=== PATIENT | female | born 1945 | race Two or more races ===

== ENCOUNTER → 2016-07-04 | Outpatient (CLI) | payer MEDICARE ==
--- NOTE | 2016-07-04 13:35 | US ---
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 SIDE PERFORMED: Left TECHNIQUE: The lower extremity deep venous system is examined utilizing real time linear array sonog jessy with graded compression, Doppler sonography and color-flow sonography. VESSELS IMAGED: Common Femoral Vein Deep Femoral Vein Greater Saphenous Vein * Femoral Vein Popliteal Vein Small Saphenous Vein * Proximal Calf Veins (* superficial vessels) Grayscale, color doppler, spectral doppler imaging performed of the deep veins of the lower extremiti es. There is normal flow, compressibility, vascular waveforms bilaterally. Left Leg: Negative for DVT. No mass is seen at patient's area of complaint. Tech findings called to Nina Armando at [facility] at exam's end.JJ Minus few images at level of palpable abnormality left anterior lateral calf show no worrisome solid or cystic mass or fluid collection on images saved. IMPRESSION: No ultrasound evidence for acute DVT in left lower extremity.
== END | disposition home or self-care (01) ==
LOC: RADUSWWP 12:27
PROVIDERS: ATTEND Family Medicine
DX: I69.964 Other paralytic syndrome following unspecified cerebrovascular disease affecting left non-dominant side (principal); M79.605 Pain in left leg

== ENCOUNTER → 2016-07-07 | Outpatient (CLI) | payer MEDICARE ==
[2016-07-07 12:30] LABS: Basophils # (A) 0.1 k/uL (0-0.2); Basophils % (A) 1 %; CH 28.2; CHCM 32.7; Eosinophils # (A) 0.4 k/uL (0-0.7); Eosinophils % (A) 3 %; HCT 40.1 % (34.0-46.0); HDW 3.15; HGB 12.9 gm/dL (11.4-16.0); Luc % (Auto) 2; Lymphocytes # (A) 3.7 k/uL (1.0-4.8); Lymphocytes % (A) 31 %; MCHC 32.2 g/dL (31.0-37.0); MCV 86.7 fL (80.0-100.0); Mean Platelet Volume 6.6; Monocytes # (A) 0.7 k/uL (0-1.0); Monocytes % (A) 6 %; Neutrophils # (A) 6.8 k/uL (1.3-7.7); Neutrophils % (A) 58 %; RBC 4.63 m/uL (3.80-5.40); RDW 13.6 % (11.5-15.5); WBC 11.8 k/uL (3.8-10.6); WBC (Perox) 12.09
[2016-07-07 12:37] LABS: ALT 17 U/L (9-52); AST 17 U/L (14-36); Alkaline Phosphatase 81 U/L (38-126); Anion Gap 10 mmol/L; Blood Urea Nitrogen 18 mg/dL (7-17); Calcium 9.8 mg/dL (8.4-10.2); Carbon Dioxide 27 mmol/L (22-30); Chloride 107 mmol/L (98-107); Cholesterol 223 mg/dL (<200); Glucose 88 mg/dL (74-99); HDL Cholesterol 85 mg/dL (40-60); Non-African American GFR(MDRD) >60 (>60 ml/min/1.73 sqM); Potassium 4.4 mmol/L (3.5-5.1); Sodium 144 mmol/L (137-145); Total Bilirubin 0.6 mg/dL (0.2-1.3); Total Protein 7.4 g/dL (6.3-8.2); Triglycerides 420 mg/dL (<150)
--- NOTE | 2016-07-07 12:45 | XR ---
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 COMPARISON: None. FINDINGS: No fracture or dislocation is seen. There is mild medial joint space loss within the left knee. There is a small plantar calcaneal spur. IMPRESSION: NO ACUTE OSSEOUS LESION.
[2016-07-07 13:42] LABS: Hemoglobin A1C 6.2 % (4.2-6.1)
== END | disposition home or self-care (01) ==
LOC: LABWHC1 11:51
PROVIDERS: ATTEND Physician Assistant Medical
DX: I69.964 Other paralytic syndrome following unspecified cerebrovascular disease affecting left non-dominant side (principal); E78.5 Hyperlipidemia, unspecified; I10 Essential (primary) hypertension
CPT/HCPCS: 36415; 80053; 80061; 83036; 84443; 85025

== ENCOUNTER → 2016-08-01 | Outpatient (CLI) | payer MEDICARE | END | disposition home or self-care (01) | LOC: LABWHC1 14:26 | PROVIDERS: ATTEND Physician Assistant Medical | DX: R94.6 Abnormal results of thyroid function studies (principal) | CPT/HCPCS: 36415; 84439; 84443; 84480; 86376; 86800 ==

== ENCOUNTER → 2017-10-20 | Outpatient (CLI) | payer MEDICARE | END | disposition home or self-care (01) | LOC: LABWHC1 13:21 | PROVIDERS: ATTEND Urology | DX: N39.0 Urinary tract infection, site not specified (principal) | CPT/HCPCS: 87077; 87086; 87186 ==

== ENCOUNTER → 2018-08-18 | Outpatient (CLI) | payer MEDICARE ==
--- NOTE | 2018-08-19 09:50 | MM ---
Reason for exam: screening (asymptomatic). Physical Findings: A clinical breast exam by your physician is recommended on an annual basis and results should be correlated with mammographic findings. MG 3D Screening Mammo W/Cad Bilateral CC, MLO, and XCCL view(s) were taken. No prior studies available for comparison. Finding #1: There is a 12 mm equal density (isodense), irregular mass in the upper quadrant, central position of the left breast. Finding #2: There are typically benign calcifications in both breasts. ASSESSMENT: Incomplete: need additional imaging evaluation, BI-RAD 0 RECOMMENDATION: Special view mammogram of the left breast. If lesion persists on supplemental views, image directed ultrasound is recommended. [facility] will attempt to contact patient to return for supplemental views and ultrasound if indicated.
== END | disposition home or self-care (01) ==
LOC: RADMAMWWP 13:54
PROVIDERS: ATTEND Family Medicine
DX: Z12.31 Encounter for screening mammogram for malignant neoplasm of breast (principal)
CPT/HCPCS: 77063; 77067

== ENCOUNTER → 2018-11-16 | Outpatient (CLI) | payer MEDICARE ==
--- NOTE | 2018-11-16 11:43 | FL ---
EXAMINATION TYPE: FL barium swallow w video DATE OF EXAM: 11/16/2018 MODIFIED SWALLOW / DEGLUTITION STUDY CLINICAL HISTORY: Dysphagia. Choking when eating and drinking. History of significant stroke 8 years ago. TECHNIQUE: Deglutition study is performed utilizing thin liquid barium, barium thick pudding, and ba rium coated cracker. Total of 56 seconds of fluoroscopic time utilized during procedure. 0 spot image s saved to PACS. COMPARISON: Prior esophagram November 21, 2014. FINDINGS: The oral and pharyngeal phases show satisfactory initiation and propagation with all modali ties tested. Satisfactory mastication is seen with solid modalities tested. There is no evidence of penetration or aspiration with any modality tested. No significant pharyngeal residue was appreciate d. IMPRESSION: Normal deglutition study. Please refer to speech therapist notes for further details if necessary.
--- NOTE | 2018-11-16 13:00 | ECHOF ---
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 MEASUREMENTS -------- HEIGHT: 160.0 cm WEIGHT: 68.9 kg BP: 103/68 RVIDd: 2.6 cm (< 3.3) IVSd: 1.0 cm (0.6 - 1.1) LVIDd: 4.2 cm (3.9 - 5.3) LVPWd: 1.1 cm (0.6 - 1.1) IVSs: 1.7 cm LVIDs: 3.1 cm LVPWs: 1.4 cm LA Diam: 3.5 cm (2.7 - 3.8) LAESV Index (A-L): 24.82 ml/m Ao Diam: 2.6 cm (2.0 - 3.7) AV Cusp: 1.8 cm (1.5 - 2.6) MV EXCURSION: 10.412 mm (> 18.000) MV EF SLOPE: 11 mm/s (70 - 150) EPSS: 0.8 cm MV E Júnior: 0.91 m/s MV DecT: 212 ms MV A Júnior: 1.32 m/s MV E/A Ratio: 0.69 RAP: 5.00 mmHg RVSP: 22.70 mmHg FINDINGS -------- Sinus rhythm. This was a technically adequate study. The left ventricular size is normal. There is borderline concentric left ventricular hypertrophy. Overall left ventricular systolic function is normal with, an EF between 60 - 65 %. The right ventricle is normal in size. Normal LA size by volume 22+/-6 ml/m2. The right atrium is normal in size. Interatrial and interventricular septum intact. The aortic valve is trileaflet and appears structurally normal. Trace amount of aortic regurgitatio n. The mitral valve leaflets are mildly thickened. Mild mitral annular calcification present. Mild m itral regurgitation is present. Mild tricuspid regurgitation present. Right ventricular systolic pressure is normal at < 35 mmHg. Trace/mild (physiologic) pulmonic regurgitation. The aortic root size is normal. There is no pericardial effusion. CONCLUSIONS -------- 1. Sinus rhythm. 2. This was a technically adequate study. 3. The left ventricular size is normal. 4. There is borderline concentric left ventricular hypertrophy. 5. Overall left ventricular systolic function is normal with, an EF between 60 - 65 %. 6. The right ventricle is normal in size. 7. Normal LA size by volume 22+/-6 ml/m2. 8. The right atrium is normal in size. 9. Interatrial and interventricular septum intact. 10. The aortic valve is trileaflet and appears structurally normal. 11. Trace amount of aortic regurgitation. 12. The mitral valve leaflets are mildly thickened. 13. Mild mitral annular calcification present. 14. Mild mitral regurgitation is present. 15. Mild tricuspid regurgitation present. 16. Right ventricular systolic pressure is normal at < 35 mmHg. 17. Trace/mild (physiologic) pulmonic regurgitation. 18. The aortic root size is normal. 19. There is no pericardial effusion. INTERPRETIVE PROGRAM COORDINATOR: Ifeoma Gunter RDCS
--- NOTE | 2018-11-16 15:23 | US ---
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 History of stroke EXAM MEASUREMENTS: RIGHT: Peak Systolic Velocity (PSV) cm/sec ----- Right CCA: 72.6 ----- Right ICA: 88.6 ----- Right ECA: 145.1 ICA/CCA ratio: 1.2 RIGHT: End Diastole cm/sec ----- Right CCA: 18.1 ----- Right ICA: 27.0 ----- Right ECA: 17.4 LEFT: Peak Systolic Velocity (PSV) cm/sec ----- Left CCA: 79.3 ----- Left ICA: 89.2 ----- Left ECA: 148.3 ICA/CCA ratio: 1.1 LEFT: End Diastole cm/sec ----- Left CCA: 23.6 ----- Left ICA: 22.0 ----- Left ECA: 15.1 VERTEBRALS (direction of flow): Right Vertebral: Antegrade Left Vertebral: Antegrade Rhythm: Normal Bilateral intimal thickening, elevated velocities: right proximal ECA and left proximal ECA, no signi ficant stenosis. Grayscale, color Doppler, spectral Doppler imaging performed of the carotid arteries. Waveform analys is does not show significant stenosis of the proximal internal carotid arteries. IMPRESSION: No hemodynamic significant stenosis of the proximal internal carotid arteries by Doppler criteria, an indirect measurement of carotid stenosis
== END ==
LOC: RADFLMAIN 10:24
PROVIDERS: ATTEND Family Medicine
DX: I08.1 Rheumatic disorders of both mitral and tricuspid valves (principal); I10 Essential (primary) hypertension; E78.5 Hyperlipidemia, unspecified; I69.391 Dysphagia following cerebral infarction
CPT/HCPCS: 74230; 93005; 93306; 93880

== ENCOUNTER → 2020-01-10 | Outpatient (CLI) | payer MEDICARE | END | disposition home or self-care (01) | LOC: LABWHC1 16:01 | PROVIDERS: ATTEND Family Medicine | DX: Z20.828 Contact with and (suspected) exposure to other viral communicable diseases (principal) | CPT/HCPCS: U0003; C9803 ==

== ENCOUNTER 2020-02-14 04:10 | Emergency (ER) | payer MEDICARE ==
[~2020-02-14 04:10] MED LIST: ATROPINE SULFATE 0.1 MG/ML 10ML SYRINGE ONE; CALCIUM CHLORIDE 100 MG/ML 10 ML SYRINGE ONE; EPINEPHrine 10 ML SYRINGE (0.1 MG/ML) ONE; MAGNESIUM SULFATE SYG 4.06 MEQ/ML SYRINGE ONE; SODIUM BICARB 8.4% 50 ML SYR (1 MEQ/ML) ONE
[2020-02-14 04:30] LABS: HCT 47.8 % (34.0-46.0); HGB 12.8 gm/dL (11.4-16.0); Hypochromasia Marked; MCH 26.5 pg (25.0-35.0); MCHC 26.7 g/dL (31.0-37.0); MCV 99.2 fL (80.0-100.0); Macrocytosis Slight; Mean Platelet Volume 8.2; Platelet Count 175 k/uL (150-450); RBC 4.82 m/uL (3.80-5.40); RDW 14.8 % (11.5-15.5)
[2020-02-14 04:40] LABS: ALT 301 U/L (4-34); AST 610 U/L (14-36); African American GFR (CKD) 52 (>60 ml/min/1.73 sqM); Albumin 2.4 g/dL (3.5-5.0); Alkaline Phosphatase 87 U/L (38-126); Blood Urea Nitrogen 29 mg/dL (7-17); Calcium 8.4 mg/dL (8.4-10.2); Chloride 114 mmol/L (98-107); Glucose 330 mg/dL (74-99); Non-African American GFR(CKD) 45 (>60 ml/min/1.73 sqM); Sodium 142 mmol/L (137-145); Total Bilirubin 0.4 mg/dL (0.2-1.3)
[2020-02-14] MEDS ORDERED: NOREPINEPHRINE 32 MG in SODIUM CHLORIDE 0.9% 218 ML IV ONE (04:40)
[2020-02-14 04:41] LABS: INR 1.2 (<1.2); Prothrombin Time 11.7 sec (9.0-12.0)
[2020-02-14 04:43] LABS: Potassium 5.7 mmol/L (3.5-5.1)
[2020-02-14 04:50] LABS: Carbon Dioxide <5 mmol/L (22-30); Partial Thromboplastin Time 87.2 sec (22.0-30.0)
[2020-02-14] MEDS ORDERED: INSULIN REGULAR 100 UNIT/ML VIAL IV STA (04:56)
--- NOTE | 2020-02-14 04:56 | ED ---
CPR HPI - General Stated Complaint: Cardiac Arrest Time Seen by Provider: 02/14/20 04:10 Source: EMS Mode of arrival: EMS Limitations: altered mental status - History of Present Illness Initial Comments: Patient is a 74-year-old woman brought by ambulance after she collapsed at home. The patient is of course not able to give any history due to being unresponsive and intubated. EMS states that they were called at at approximately 319 and it was reported that the patient had collapsed as a witnessed collapse at home. They arrived to find patient asystole and instituted ACLS protocol including intubation, ACLS meds including epinephrine 9. They did reportedly obtain may tricular fibrillation which was shocked into PEA. Per EMS the patient had not been feeling well and did not want to go to bed and then collapsed in the kitchen. MD Complaint: collapsed during rest Onset/Timin -: minute(s) Place: home AED Applied by Bystander/Polystyrene Molding Machine Tender: Yes Shock Advised: Yes Number of Shocks Delivered: 1 Initial Findings in the Field: unresponsive ROSC in the Field: No Treatments Prior to Arrival: intubation, chest compressions, defibrillated shocks #, epinephrine mgs # (8) Review of Systems ROS Statement: Those systems with pertinent positive or pertinent negative responses have been documented in the HPI. ROS Other: All systems not noted in ROS Statement are negative. Limitations: ROS unobtainable due to patients medical condition (Patient unresponsive and intubated) Past Medical History History of Any Multi-Drug Resistant Organisms: ESBL Date of last positivie culture/infection: 09/23/19 MDRO Source:: ESBL URINE General Exam Limitations: altered mental status General appearance: other (Unresponsive and intubated) Head exam: Present: atraumatic, normocephalic Eye exam: Present: other (Pupils approximately 6 mm and nonreactive. Corneal drying). Absent: PERRL, EOMI ENT exam: Present: other (There is mucosal pallor. An endotracheal tube is secured with a bite block at 27 cm) Neck exam: Present: normal inspection, other (Step-off or deformity) Respiratory exam: Present: rales, rhonchi, other (There is no spontaneous inspiratory effort. While the patient is bagged there are Rales throughout and scattered rhonchi) Cardiovascular Exam: Present: normal rhythm, bradycardia, other (There is a pulse rate approximate mid 40s with palpable femoral pulse). Absent: systolic murmur, diastolic murmur, rubs, gallop GI/Abdominal exam: Present: soft. Absent: tenderness, guarding, rebound Extremities exam: Absent: normal capillary refill (Delayed capillary refill), pedal edema, other (No deformity. Left pretibial contusion) Back exam: Present: normal inspection. Absent: other (No step-off or deformity noted) Neurological exam: Present: motor sensory deficit. Absent: alert, reflexes normal Expanded Neurological exam: Present: total aphasia. Absent: protecting the airway Speech: Present: total aphasia Cranial nerves: Gag Reflex: Abnormal Right, Abnormal Left Eye Response: (1) no response Motor Response: (1) no motor response Verbal Response: (1) no verbal response Skin exam: Present: pallor. Absent: rash Course Vital Signs 02/14/20 05:35 Respiratory 12 Rate Medical Decision Making - Medical Decision Making Patient is 74-year-old woman brought by ambulance after collapsing at home and initially being found in asystole. On arrival patient receiving mechanical CPR, and it appears that EMS has obtained ROSC. Initially bradycardic and therefore additional epinephrine given. I did begin to place a central line for pressors. As I was in the process of starting to place the central line the patient did lose pulses in CPR was recommenced. I therefore was not able place a line in the subclavian or IJ locations. It was not possible to use the ultrasound as patient receiving CPR and too much motion. Line placement uncomplicated. She the procedure note. The patient is then started on fluids and pressors. The chest x-ray then shows bilateral edema versus actually suspected Covid picture. The patient ultimately again did lose pulses and not responsive to further ACLS and is pronounced at 638. Case is discussed with patient's primary physician who will sign the certificate. Case is discussed with the medical affairs director and they will release for disposition. - Lab Data Result diagrams: 02/14/20 04:15 02/14/20 04:15 Lab Results 02/14/20 02/14/20 02/14/20 Range/Units 04:15 04:15 04:15 WBC 13.6 H (3.8-10.6) k/uL RBC 4.82 (3.80-5.40) m/uL Hgb 12.8 (11.4-16.0) gm/dL Hct 47.8 H (34.0-46.0) % MCV 99.2 (80.0-100.0) fL MCH 26.5 (25.0-35.0) pg MCHC 26.7 L (31.0-37.0) g/dL RDW 14.8 (11.5-15.5) % Plt Count 175 (150-450) k/uL MPV 8.2 Neutrophils % (Manual) 64 % Band Neuts % (Manual) 4 % Lymphocytes % (Manual) 27 % Monocytes % (Manual) 2 % Eosinophils % (Manual) 1 % Myelocytes % 2 % Neutrophils # (Manual) 9.20 H (1.3-7.7) k/uL Lymphocytes # (Manual) 3.67 (1.0-4.8) k/uL Monocytes # (Manual) 0.27 (0-1.0) k/uL Eosinophils # (Manual) 0.14 (0-0.7) k/uL Myelocytes # (Manual) 0.27 H (0) k/uL Nucleated RBCs 3 H (0-0) /100 WBC Manual Slide Review Performed Hypochromasia Marked Macrocytosis Slight PT 11.7 (9.0-12.0) sec INR 1.2 H (<1.2) APTT 87.2 H (22.0-30.0) sec D-Dimer (<0.60) mg/L FEU Sodium 142 (137-145) mmol/L Potassium 5.7 H (3.5-5.1) mmol/L Chloride 114 H (98-107) mmol/L Carbon Dioxide <5 L* (22-30) mmol/L Anion Gap mmol/L BUN 29 H (7-17) mg/dL Creatinine 1.19 H (0.52-1.04) mg/dL Est GFR (CKD-EPI)AfAm 52 (>60 ml/min/1.73 sqM) Est GFR (CKD-EPI)NonAf 45 (>60 ml/min/1.73 sqM) Glucose 330 H (74-99) mg/dL Lactic Ac Sepsis Rflx Plasma Lactic Acid May (0.7-2.0) mmol/L Calcium 8.4 (8.4-10.2) mg/dL Total Bilirubin 0.4 (0.2-1.3) mg/dL AST 610 H (14-36) U/L ALT 301 H (4-34) U/L Alkaline Phosphatase 87 (38-126) U/L CK-MB (CK-2) (0.0-2.4) ng/mL Troponin I (0.000-0.034) ng/mL Total Protein 5.0 L (6.3-8.2) g/dL Albumin 2.4 L (3.5-5.0) g/dL Coronavirus (PCR) (Not Detectd) 02/14/20 02/14/20 02/14/20 Range/Units 04:15 04:15 04:57 WBC (3.8-10.6) k/uL RBC (3.80-5.40) m/uL Hgb (11.4-16.0) gm/dL Hct (34.0-46.0) % MCV (80.0-100.0) fL MCH (25.0-35.0) pg MCHC (31.0-37.0) g/dL RDW (11.5-15.5) % Plt Count (150-450) k/uL MPV Neutrophils % (Manual) % Band Neuts % (Manual) % Lymphocytes % (Manual) % Monocytes % (Manual) % Eosinophils % (Manual) % Myelocytes % % Neutrophils # (Manual) (1.3-7.7) k/uL Lymphocytes # (Manual) (1.0-4.8) k/uL Monocytes # (Manual) (0-1.0) k/uL Eosinophils # (Manual) (0-0.7) k/uL Myelocytes # (Manual) (0) k/uL Nucleated RBCs (0-0) /100 WBC Manual Slide Review Hypochromasia Macrocytosis PT (9.0-12.0) sec INR (<1.2) APTT (22.0-30.0) sec D-Dimer (<0.60) mg/L FEU Sodium (137-145) mmol/L Potassium (3.5-5.1) mmol/L Chloride (98-107) mmol/L Carbon Dioxide (22-30) mmol/L Anion Gap mmol/L BUN (7-17) mg/dL Creatinine (0.52-1.04) mg/dL Est GFR (CKD-EPI)AfAm (>60 ml/min/1.73 sqM) Est GFR (CKD-EPI)NonAf (>60 ml/min/1.73 sqM) Glucose (74-99) mg/dL Lactic Ac Sepsis Rflx Y Plasma Lactic Acid May 20.3 H* (0.7-2.0) mmol/L Calcium (8.4-10.2) mg/dL Total Bilirubin (0.2-1.3) mg/dL AST (14-36) U/L ALT (4-34) U/L Alkaline Phosphatase (38-126) U/L CK-MB (CK-2) 6.7 H (0.0-2.4) ng/mL Troponin I 0.697 H* (0.000-0.034) ng/mL Total Protein (6.3-8.2) g/dL Albumin (3.5-5.0) g/dL Coronavirus (PCR) (Not Detectd) 02/14/20 02/14/20 Range/Units 05:59 06:00 WBC (3.8-10.6) k/uL RBC (3.80-5.40) m/uL Hgb (11.4-16.0) gm/dL Hct (34.0-46.0) % MCV (80.0-100.0) fL MCH (25.0-35.0) pg MCHC (31.0-37.0) g/dL RDW (11.5-15.5) % Plt Count (150-450) k/uL MPV Neutrophils % (Manual) % Band Neuts % (Manual) % Lymphocytes % (Manual) % Monocytes % (Manual) % Eosinophils % (Manual) % Myelocytes % % Neutrophils # (Manual) (1.3-7.7) k/uL Lymphocytes # (Manual) (1.0-4.8) k/uL Monocytes # (Manual) (0-1.0) k/uL Eosinophils # (Manual) (0-0.7) k/uL Myelocytes # (Manual) (0) k/uL Nucleated RBCs (0-0) /100 WBC Manual Slide Review Hypochromasia Macrocytosis PT (9.0-12.0) sec INR (<1.2) APTT (22.0-30.0) sec D-Dimer >34.10 H (<0.60) mg/L FEU Sodium (137-145) mmol/L Potassium (3.5-5.1) mmol/L Chloride (98-107) mmol/L Carbon Dioxide (22-30) mmol/L Anion Gap mmol/L BUN (7-17) mg/dL Creatinine (0.52-1.04) mg/dL Est GFR (CKD-EPI)AfAm (>60 ml/min/1.73 sqM) Est GFR (CKD-EPI)NonAf (>60 ml/min/1.73 sqM) Glucose (74-99) mg/dL Lactic Ac Sepsis Rflx Plasma Lactic Acid May (0.7-2.0) mmol/L Calcium (8.4-10.2) mg/dL Total Bilirubin (0.2-1.3) mg/dL AST (14-36) U/L ALT (4-34) U/L Alkaline Phosphatase (38-126) U/L CK-MB (CK-2) (0.0-2.4) ng/mL Troponin I (0.000-0.034) ng/mL Total Protein (6.3-8.2) g/dL Albumin (3.5-5.0) g/dL Coronavirus (PCR) Detected A (Not Detectd) - EKG Data -: EKG Interpreted by [place] EKG shows normal: sinus rhythm, axis (Left axis deviation), intervals (First- degree AV block. Right bundle branch block.) Rate: normal (Rate approximately 82 bpm) Critical Care Time Critical Care Time: Yes (75 minutes) Disposition Clinical Impression: COVID-19, Cardiopulmonary arrest, Respiratory failure, Lactic acidosis Disposition: Referrals: Silverio Navarrete DO [Primary Care Provider] - 1-2 days Preliminary Cause of : covid 19. respiratory failure. cardiopulmonary arrest. metabolic acidosis.
[2020-02-14 04:57] LABS: Creatine Kinase MB 6.7 ng/mL (0.0-2.4); Troponin I 0.697 ng/mL (0.000-0.034)
[2020-02-14] MEDS ORDERED: AMIODARONE 360 MG in DEXTROSE 5% IN WATER 200 ML IV ONE ×2 (05:00)
[2020-02-14 05:06] LABS: Band Neutrophils % 4 %; Eosinophils # (M) 0.14 k/uL (0-0.7); Lymphocytes # (M) 3.67 k/uL (1.0-4.8); Monocytes # (M) 0.27 k/uL (0-1.0); Myelocytes # (M) 0.27 k/uL (0); Myelocytes % 2 %; Neutrophils % (M) 64 %; Nucleated Red Blood Cells 3 /100 WBC (0-0); Total Cells Counted 200; WBC 13.6 k/uL (3.8-10.6)
--- NOTE | 2020-02-14 05:28 | XR ---
EXAM: XR Chest, 1 View CLINICAL HISTORY: ITS.REASON XR Reason: cardiac arrest TECHNIQUE: Frontal view of the chest. COMPARISON: No relevant prior studies available. IMPRESSION: ET tube terminates at the beto. Pullback 5 cm. NG tube is past the mid stomach. Diffuse lung opacities. Cardiomegaly. No effusion. <MYCVCSECTION> Communications: 02/14/20 05:[address] Anne on 02/13 05:29 (-05:00)
[2020-02-14 05:55] VITALS: RESP 12
== END 2020-02-14 09:15 | disposition expired ==
LOC: EC 04:10
DX: U07.1 COVID-19 (principal); I46.9 Cardiac arrest, cause unspecified; E87.2 Acidosis; J96.90 Respiratory failure, unspecified, unspecified whether with hypoxia or hypercapnia
CPT/HCPCS: 99291 ×2; 99292 ×2; 31500 ×2; 36556 ×2; 92950 ×2; 96365 ×2; 96366 ×2; 96368 ×2; 36415; 94002; 93005; 85379; 80053; 82553; 83605; 84484; 85025; 85610; 85730; 87635; 71045; J3475; J0461; J0171; J0282